=== PATIENT | male | born 1995 | race Caucasian/White ===

== ENCOUNTER 2016-12-12 19:23 | Inpatient (IN) | payer OTHER ==
[~2016-12-12] VITALS: Ht 175.3 cm; Wt 94.9 kg
[2016-12-12 19:31] VITALS: BP 142/87; PULSE 84; RESP 20; O2SAT 98
--- NOTE | 2016-12-12 19:37 | ED.REPORT ---
HPI-Abd Pain M Under 40 Date of Service Dec 12, 2016 ED Provider: Dr. Garcia Pt is a healthy 21 year old male presenting to the ED complaining of RLQ abdominal pain onset yesterday. Associated symptoms include nausea and vomiting. He was sent from after a CT scan showing a perforated appendicitis. Denies headache, chest pain, SOB, or any other symptoms at this time. Nursing Notes Stated Complaint: ACUTE APPENDICITIS Chief Complaint: Male Abdominal Pain Nursing Notes Reviewed: Yes Allergies: Coded Allergies: No Known Allergies (Unverified , 12/12/16) General Time Seen by MD: 19:37 Chief Complaint Abdominal pain Hx Obtained From: Patient Arrived By: Walk-in Sudden in Onset?: Yes Onset Occurred: Yesterday Symptom Duration: Since onset Progression since Onset: Constant Location: : RLQ Quality: Painful Radiation: : Does not radiate Severity: Current: Moderate Severity: Maximum: Severe Associated with: Reports: Nausea, Vomiting Recent Healthcare: No recent hospitalization, Recent doctor visit Similar Sx Previous: No Past Medical History Past Medical History Notes: CT ABD and PELVIS at today shows: 1. Ruptured appendicitis with appendicolith. Moderate surrounding free fluid and pelvic fluid. 2. Mildly distended small bowel loops within the pelvis, consistent with mild secondary focal ileus. Past Medical History healthy Past Surgical History denies Smoking History Unknown if Ever Smoker Ambulatory Status Independent Review of Systems Constitutional: Denies: Fever Respiratory: Denies: Shortness of breath Cardiovascular: Denies: Chest pain, Syncope GI: Reports: Abdominal pain, Nausea, Vomiting Complete sys rev & neg: except as marked. Neurologic: Denies: Headache Physical Exam Initial Vital Signs Vital Signs (First) Date Time Temp Pulse Resp B/P Pulse Ox O2 Delivery O2 Flow Rate FiO2 12/12/16 19:31 38.0 84 20 142/87 98 Room Air Initial VS: Reviewed Head / Eyes: Atraumatic, Normocephalic, PERRL ENT: Mucous membranes moist, Conjunctiva normal, No scleral icterus Neck: Supple, Non-tender, Full range of motion Extremities: Vascular intact, Neuro intact, No swelling, No tenderness Skin: Warm, Dry, No cyanosis Neurologic: Alert, Oriented, Nonfocal Psychiatric: Mood/affect normal, Behavior normal, Normal thought content General/Constitutional: Awake, Alert, No acute distress, Well appearing Generalized pallor Respiratory / Chest: Atraumatic, Breath sounds NL, Breath sounds = bilat, No respiratory distress Cardiovascular: Heart rate NL, Regular rhythm, Heart sounds NL, No gallop, No murmurs, No rubs Abdomen: Atraumatic, No palpable mass Tenderness/Guarding/Rebound: Positive: Guarding voluntary, Tender RLQ... ( Moderate) Interpretation & Diagnostics Lab Results Interpretation Result Diagram: 12/12/16201712/12/162017 Re-Eval/Medical Decision Med Decision/Clinical Course 21-year-old healthy male with acute ruptured appendicitis. CT confirmation. Laboratory work shows leukocytosis. Patient was fluid resuscitated and treated with broad-spectrum antibiotics. Surgical consultation performed. Plan for operative intervention this evening. Re-Evaluation/Progress : Time of Eval: 20:30 Patient Status: Condition improved Re-Evaluation/Progress Note: Performed physical exam. Consultation : Referral / Consult Name: Lee Hardwick MD Consulted With: Surgeon Call Returned at: 19:41 Records Management Specialist: Will see patient, Agrees with plan, Accepts admit Note: He will go to surgery tonight. Counseled Regarding: Diagnosis, Lab results, Need for admission Patient Discharge & Departure Primary Impression: Ruptured appendicitis Disposition: ADMITTED TO HOSPITAL Discharge Condition All VS Reviewed: Yes Condition: Improved Referrals: NOPCP (PCP) [facility] Attestation Portions of this note were transcribed by Gabriela Anderson. I, Dr. Garcia personally performed the history, physical exam and medical decision-making; I reviewed and confirmed the accuracy of the information in the transcribed note. Signed by : Tracey Mccracken, 12/12/2016 at 2120. Facundo Garcia DO Dec 12, 2016 19:37 GABRIELA ANDERSON Dec 12, 2016 19:45
[2016-12-12] MEDS ORDERED: Piperacillin-Tazo 3.375 Gm Inj 3.375 GM in Dextrose 5% Minibag Plus 50 ML IV ONE (19:40)
[2016-12-12] MEDS ORDERED: 0.9% Sodium Chloride 1,000 ML IV ONE (19:40)
[2016-12-12] MEDS ORDERED: Ondansetron 2 mg/mL 2 mL Inj IVPUSH PRN ×3 (19:40→23:30)
[2016-12-12] MEDS ORDERED: Propofol 10,000 mCg/mL 20 mL Inj ONE (20:06)
[2016-12-12] MEDS ORDERED: Succinylcholine Chloride 20 mg/mL 5 mL Inj ONE (20:06)
[2016-12-12] MEDS ORDERED: Glycopyrrolate 0.2 MG/ML 1mL Inj ONE (20:06)
[2016-12-12] MEDS ORDERED: fentaNYL-PF 50 mCg/mL 2 mL Inj ONE (20:06)
[2016-12-12] MEDS ORDERED: Rocuronium 10 mg/mL 5 mL Inj ONE (20:06)
[2016-12-12] MEDS ORDERED: Neostigmine 1 mg/mL 10 mL Inj ONE (20:06)
[2016-12-12] MEDS ORDERED: Ondansetron 2 mg/mL 2 mL Inj ONE (20:06)
[2016-12-12] MEDS: HYDROmorphone 0.5 mg/0.5 mL iSecure Syringe IVPUSH PRN ×2 (20:10→20:54)
[2016-12-12 20:21] LABS: BASOPHILS % (AUTO) 0.1 % (0-3); EOSINOPHILS % (AUTO) 0.1 % (0-5); MONOCYTES % (AUTO) 9.4 % (4-12); Mean Corpuscular Hemoglobin 28.5 pg (27.0-35.0); NEUTROPHILS % (AUTO) 86.9 % (40-74); Platelet Count 203 bil/L (150-400)
--- NOTE | 2016-12-12 22:04 | PCM.HPANE ---
Patient Data Surgeon Admitting Provider:Lee Hardwick MD Attending Provider:Lee Hardwick MD Primary Care Physician:Michael Other Provider: Reason for Visit Ruptured Appy Ht/WT & BMI Height (Feet): 5 Height (Inches): 9 Weight (Kilograms): 92.27 Body Mass Index Allergies Coded Allergies: No Known Allergies (Unverified , 12/12/16) Past Anesthesia History Anesthesia History: Denies:: Abnormal Airway, Anesthesia Reactions, Difficult Intubation, Fam Anesthesia Reaction, Fam Malignant Hypertherm, Malignant Hyperthermia Diabetes History Hx Diabetes?: No History History of ENT Problems?: No HEENT History: Denies:: Abnormal Airway Cataracts Difficult Intubation Dysphagia Glaucoma Hearing Problem Sinus Problem TMJ Denture Type: None Teeth Condition: Within Normal Limits Hx of Heart Problems?: No Cardiovascular History: Denies:: AICD Abdominal Aortic Aneurism Atrial Fibrillation Cardiac Surgery Chest Pain Congestive Heart Failure Coronary Artery Disease Edema Heart Murmur Hypertension Irregular Heartbeat Pacemaker Peripheral Vascular Rheumatic Fever Thrombophlebitis Valvular Heart Disease Hx of Respiratory Problem?: No Respiratory History: Denies:: Asthma COPD Chest Surgery Cough Dyspnea Emphysema Hemoptysis Oxygen Administration Pneumonia Pulmonary Embolism Tuberculosis Use of C-PAP Machine Use of Inhalers / NEBS Hx Neurologic Problems?: No Neurological History: Denies:: Alzheimer's Disease CVA Dementia Dizziness Headaches Multiple Sclerosis Parkinson's Disease Peripheral Neuropathy Seizures TIA Hx of GI Problems?: Yes Other History/Comment Appendicitis Hx of Problems?: No Male Hx: Denies:: Prostate Problems Scrotal Mass Testicular Surgery Skin History: Denies:: History Skin Disorders? Pressure Ulcers Hx Musculoskeletal Problems?: No Musculoskeletal History: Denies:: Back Injury Degenerative Joint Fibromyalgia Joint Replacement Musculoskeletal Trauma Myasthenia Gravis Osteoarthritis Rheumatoid Arthritis Systemic Lupus Psycho Social History: Denies:: Anxiety Bipolar Disorder Hx Depression Suicide Attempt Hx Surgeries?: No Other History: Denies:: Cancer Endocrine Disease Hospitalization Thyroid Disease History Blood Transfusions: Denies:: Accept Blood Products? Blood Transfuse Reaction Blood Transfusions Hx Diabetes: No Hx Alcohol Use: NoHx Substance Use: No Smoking Status: Unknown if Ever Smoker Stop/Bang Treated for Sleep Apnea?: No Do You Have a CPAP Machine?: No Risk Assessment Category Category 1A: Patient has history of documented sleep apnea, and HAS NOT received any narcotic, sedative or anesthesia administration during this stay. Category 1B: Patient has history of documented sleep apnea, and HAS received any narcotic , sedative or anesthesia administration during this stay Category 2: Patient has SUSPECTED Obstructive Sleep Apnea, and HAS received any narcotic , sedative or anesthesia administration during this stay. Category 3: Patient has SUSPECTED Obstructive Sleep Apnea and HAS NOT received narcotic, sedative or anesthesia administration during this stay. Category 4: Outpatient in Procedural Areas with known sleep apnea or who screen positive for High Risk via the STOP/BANG questionnaire. Exam Exam Vital Signs Vital Signs Date Time Temp Pulse Resp B/P Pulse Ox O2 Delivery O2 Flow Rate FiO2 12/12/16 19:31 38.0 84 20 142/87 98 Room Air General Appearance: Alert, Oriented X3, Cooperative, No Acute Distress HEENT/AIRWAY: MP 2 Lungs: Clear to Auscultation, Normal Air Movement Heart: Exam Unremarkable, Regular Rate/Rhythm, No Murmurs/Rubs/Gallops Meds/Labs/Diagnostics Admission Meds Current Medications Piperacillin Sod/ Tazobactam Sod 3.375 gm/Dextrose/ Water 50 ml @ 100 mls/hr ONCE ONCE IV Last administered on 12/12/16 20:07; Start 12/12/16 at 19:40; Stop 12/12/16 at 20:09; Status DC Sodium Chloride (Normal Saline) 1,000 ml @ 0 mls/hr Q0M ONCE IV Last administered on 12/12/16 20:07; Start 12/12/16 at 19:40; Stop 12/12/16 at 19:41 ; Status DC Labs Test 12/12/16 20:18 White Blood Count 19.0th/mm3 (3.8-10.1) Red Blood Count 5.29mil/mm3 (4.40-5.80) Hemoglobin 15.1g/dL (13.8-17.2) Hematocrit 43.9% (41.0-50.0) Mean Corpuscular Volume 83.0fL (81-100) Mean Corpuscular Hemoglobin 28.5pg (27.0-35.0) Mean Corpuscular Hemoglobin Concent 34.4% (32.0-37.0) Red Cell Distribution Width 13.1% (12.3-15.4) Platelet Count 203bil/L (150-400) Neutrophils (%) (Auto) 86.9% (40-74) Lymphocytes (%) (Auto) 3.2% (14-46) Monocytes (%) (Auto) 9.4% (4-12) Eosinophils (%) (Auto) 0.1% (0-5) Basophils (%) (Auto) 0.1% (0-3) Sodium Level 138mEq/L (134-144) Potassium Level 4.1mEq/L (3.5-5.2) Chloride Level 96mEq/L (97-108) Carbon Dioxide Level 24mmol/L (18-29) Blood Urea Nitrogen 12mg/dL (6-20) Creatinine 1.01mg/dL (0.76-1.27) Estimat Glomerular Filtration Rate 99mL/min (>59) Glucose Level 125mg/dL (60-99) Calcium Level 10.1mg/dL (8.5-10.1) Total Bilirubin 0.6mg/dL (0.0-1.2) Aspartate Amino Transf (AST/SGOT) 16U/L (0-50) Alanine Aminotransferase (ALT/SGPT) 19U/L (0-44) Alkaline Phosphatase 96U/L (25-150) Total Protein 8.1g/dL (6.4-8.4) Albumin 4.7g/dL (3.4-5.0) Plan Impression Patient chart reviewed, patient interviewed and anesthestic plan with risks, benefits, and alternatives discussed, and informed consent obtained. ASA Physical Status: ASA2 Plus Emergency Anesthetic Plan: GA Bene/Risks/Altern/Consents: Yes HP Complete Prior to Induction: Yes Lee Holcomb MD Dec 12, 2016 22:04
[2016-12-12] MEDS ORDERED: Lactated Ringer's 1,000 ML IV ONE ×2 (22:08→23:15)
[2016-12-12] MEDS ORDERED: Bupivacaine-MPF 0.5% 30 mL Inj INFILTRATE ONE (22:22)
[2016-12-12 22:28] VITALS: BP 142/87; PULSE 84; RESP 20; O2SAT 98
[2016-12-12] MEDS ORDERED: diphenhydrAMINE 25 mg Capsule PO PRN (23:25)
[2016-12-12] MEDS ORDERED: Acetaminophen IV 1,000 MG in IV Premix 1 EACH IV PRN (23:25)
[2016-12-12] MEDS ORDERED: HYDROmorphone 0.5 mg/0.5 mL iSecure Syringe IV PRN (23:25)
[2016-12-12] MEDS ORDERED: Polyethylene Glycol (PEG) 17 Gm Powder PO ONE (23:25)
[2016-12-12] MEDS ORDERED: Phenylephrine 10,000 mCg/mL Inj IVPUSH PRN (23:30)
[2016-12-12] MEDS ORDERED: fentaNYL-PF 50 mCg/mL 2 mL Inj IVPUSH PRN (23:30)
[2016-12-12] MEDS ORDERED: EPHEDrine Sulfate 50 mg/mL Inj IVPUSH PRN (23:30)
[2016-12-12] MEDS ORDERED: Lactated Ringer's 500 ML IV PRN (23:30)
[2016-12-12] MEDS ORDERED: HYDROmorphone 1 mg/mL Inj IVPUSH PRN (23:30)
[2016-12-12] MEDS ORDERED: MetoCLOpramide 5 mg/mL 2 mL Inj IVPUSH PRN (23:30)
[2016-12-12] MEDS ORDERED: Lactated Ringer's 1,000 ML IV SCH (23:30)
[2016-12-12] MEDS ORDERED: Dexamethasone 4 mg/mL Inj IVPUSH PRN (23:30)
--- NOTE | 2016-12-12 23:34 | HP ---
[address] [address] HISTORY AND PHYSICAL PATIENT: DANIEL FIGUEROA : 1995 MR#: [id number] ADMIT: 12/12/2016 JOB ID: [id number] DATE OF ADMISSION: 12/12/2016 CHIEF COMPLAINT/IDENTIFICATION: A [id number] man with probable appendicitis. HISTORY OF PRESENT ILLNESS: The patient developed onset of pain beginning yesterday in the right lower quadrant, with associated nausea and vomiting. He was seen in urgent care, diagnosed by CT scan with a possible perforated appendicitis. PAST MEDICAL HISTORY: Negative. MEDICATIONS: None. ALLERGIES: None. SOCIAL HISTORY: Lives with his parents. Works as a cross fit staff trainer. Negative tobacco. Negative alcohol. FAMILY HISTORY: Noncontributory. REVIEW OF SYSTEMS: Complete review of systems negative except for current abdominal pain. PHYSICAL EXAMINATION: Temperature 38, blood pressure and pulse within normal limits. Room air saturation is 98%. HEENT normocephalic, atraumatic. Sclerae are clear. Neck is supple. Lungs are clear. Heart sounds are regular. Abdomen is tender in the right lower quadrant. LABORATORIES: Labs demonstrate a white count of 19, hematocrit of 43. Normal chemistries. Glucose of 125, normal LFTs. IMAGING: Abdominal CT scan by report is consistent with a perforated appendicitis. I have reviewed the films as well as the report. I believe that this is most consistent with appendicitis with an appendicolith and this is not inconsistent with a perforated appendicitis but is not pathognomonic. IMPRESSION AND PLAN: Probable appendicitis with possible perforation. He has received intravenous Zosyn for the beginning of therapeutic antibiotics in the emergency department. I have recommended laparoscopic appendectomy. He agrees to proceed. We will proceed tonight.
[2016-12-12 23:48] VITALS: BP 136/66; PULSE 77; RESP 25; O2SAT 97
[2016-12-12 23:50] VITALS: BP 136/73; PULSE 74; RESP 26; O2SAT 97
[2016-12-12 23:56] VITALS: BP 140/60; PULSE 69; RESP 24; O2SAT 97
--- NOTE | 2016-12-12 23:57 | PCM.ANEP1 ---
Post Anesthesia PACU Phase 1 Assessment Vital Signs Vital Signs Date Time Temp Pulse Resp B/P Pulse Ox O2 Delivery O2 Flow Rate FiO2 12/12/16 23:50 74 26 136/73 97 Nasal Cannula 2 12/12/16 23:48 37.2 77 25 136/66 97 Nasal Cannula 2 12/12/16 22:28 38.0 84 20 142/87 98 Room Air 12/12/16 19:31 38.0 84 20 142/87 98 Room Air Anesthetic Administered: GA Level of Alertness: Sleeping, hard to arouse HALE's with Equal Strength: Yes Pain: No Pain Scale Score: 0 Nausea or Vomiting: No CV Function & Hydration Stable: Yes Airway Device: Oxygen Delivery: Room Air Lungs: Clear to Auscultation, Normal Air Movement Dermatome Level: Full Sensation PACU Phase 2 Assessment Complications: No Follow up Care: No Patient Instructions Provided: N/A Lee Holcomb MD Dec 12, 2016 23:57
[2016-12-13] VITALS (9 sets, daily range): BP systolic 126–155; BP diastolic 68–80; PULSE 69–99; RESP 16–23; O2SAT 95–98
--- NOTE | 2016-12-13 00:23 | OP ---
[address] [address] OPERATIVE REPORT PATIENT: DANIEL FIGUEROA : 1995 MR#: [id number] ADMIT: 12/12/2016 JOB ID: [id number] DATE OF SURGERY: 12/12/2016 PREOPERATIVE DIAGNOSIS(ES): Appendicitis. POSTOPERATIVE DIAGNOSIS(ES): Perforated appendicitis. PROCEDURE: Laparoscopic appendectomy for perforated appendicitis. SURGEON: 1. Lee Hardwick MD. 2. Dr. Elieser Ortiz. BUSINESS PLANNER: Rob Cedillo PA-C. INDICATION: A 21-year-old man with signs and symptoms consistent with appendicitis. Preoperative CT was read as possible perforated appendicitis and he was began on therapeutic antibiotics in the emergency department immediately prior to transfer to the operating room. FINDINGS: 1. A surgical services director was necessary for camera operation. 2. The patient had perforated appendicitis. PROCEDURE: The patient was brought to the operating room. SCOAP protocol was followed. He was on therapeutic antibiotics that had been started immediately prior to transfer from the emergency department and we; therefore, did not give him any extra antibiotics. Surgical time-out was performed. The abdomen was prepped and draped in sterile fashion. We obtained access with a Veress needle. CO2 pneumoperitoneum was established. We placed a 5 mm periumbilical port, followed by two additional ports in the standard fashion. The appendix was exposed. He clearly had an inflamed appendix. As we mobilized the appendix, it became clear that he had a contained perforation in the paracolic gutter. We mobilized the appendix, took down the mesoappendix, and then amputated the appendix at its base with a single firing of the endoscopic stapler. The tip of the appendix was then freed up and placed in a bag and removed without wound contamination. We suctioned up all the spillage, irrigated appropriately, including irrigating out the pelvis. We then checked our staple line and once we were satisfied that the staple line was intact and hemostasis was good we placed a Ant-Buenrostro drain with its tip down into the pelvis and looping past the abscess cavity in the right paracolic gutter. We let our CO2 out, closed the wounds with absorbable suture, secured the drain. Patient tolerated the procedure well.
[2016-12-13] MEDS: D5 0.45% NaCl + KCl 20 mEq/L 1,000 ML IV SCH ×3 (00:45→19:25)
[2016-12-13] MEDS: Piperacillin-Tazo 3.375 Gm Inj 3.375 GM in Dextrose 5% Minibag Plus 50 ML IV SCH ×3 (00:45→17:41)
[2016-12-13] MEDS: Sodium Chloride LOK Flush 10 mL Syringe IVFLUSH SCH ×3 (00:45→17:41)
[2016-12-13] MEDS ORDERED: 0.9% Sodium Chloride 250 ML ONE (00:47)
[2016-12-13] MEDS ORDERED: Polyethylene Glycol (PEG) 17 Gm Powder PO ONE ×2 (05:20→08:30)
[2016-12-13 07:13] LABS: BASOPHILS % (AUTO) 0.1 % (0-3); EOSINOPHILS % (AUTO) 0.1 % (0-5); MONOCYTES % (AUTO) 10.3 % (4-12); Mean Corpuscular Hemoglobin 28.6 pg (27.0-35.0); Mean Corpuscular Volume 84.9 fL (81-100); NEUTROPHILS % (AUTO) 82.5 % (40-74); Platelet Count 168 bil/L (150-400)
--- NOTE | 2016-12-13 08:26 | PCM.PNSURG ---
Subjective Date of Service: Dec 13, 2016 Date of Service: Dec 13, 2016 Visit Information: Reason for Visit Ruptured Appy Surgery/Surgery Date Post-Op Day # 1 Date of Admission: Dec 12, 2016 at 20:05 Hospital Day # 1 Subjective: Patient resting comfortably in bed. He states he is having no nausea and minimal abdominal pain. He has not had a bowel movement or passed flatus at this time. Postop General: No Complaints, No Shortness of Breath Gastrointestinal: No N/V Pain Management: PO (with IV Push available PRN) Postop Activity: Ambulating Independently Objective Objective CBC Test 12/13/16 06:35 White Blood Count 16.7th/mm3 (3.8-10.1) Red Blood Count 4.83mil/mm3 (4.40-5.80) Hemoglobin 13.8g/dL (13.8-17.2) Hematocrit 41.0% (41.0-50.0) Mean Corpuscular Volume 84.9fL (81-100) Mean Corpuscular Hemoglobin 28.6pg (27.0-35.0) Mean Corpuscular Hemoglobin Concent 33.7% (32.0-37.0) Red Cell Distribution Width 13.3% (12.3-15.4) Platelet Count 168bil/L (150-400) Neutrophils (%) (Auto) 82.5% (40-74) Lymphocytes (%) (Auto) 6.8% (14-46) Monocytes (%) (Auto) 10.3% (4-12) Eosinophils (%) (Auto) 0.1% (0-5) Basophils (%) (Auto) 0.1% (0-3) CMP Test 12/12/16 20:18 Sodium Level 138mEq/L Potassium Level 4.1mEq/L Chloride Level 96mEq/L Carbon Dioxide Level 24mmol/L Blood Urea Nitrogen 12mg/dL Creatinine 1.01mg/dL Estimat Glomerular Filtration Rate 99mL/min Glucose Level 125mg/dL Calcium Level 10.1mg/dL Total Bilirubin 0.6mg/dL Aspartate Amino Transf (AST/SGOT) 16U/L Alanine Aminotransferase (ALT/SGPT) 19U/L Alkaline Phosphatase 96U/L Total Protein 8.1g/dL Albumin 4.7g/dL Vital Sign- Last 8 Hours Date Time Temp Pulse Resp B/P Pulse Ox O2 Delivery O2 Flow Rate FiO2 12/13/16 07:53 36.8 96 16 133/70 97 Room Air 12/13/16 06:15 37.0 99 16 127/69 98 Room Air Intake and Output- Last 8 Hour 12/13/16 Cumulative From/Thru 07:00 12/12/16 00:09 - 12/13/16 06:47 Intake Total 1065 ml 3165 ml Output Total 0 ml 0 ml Balance 1065 ml 3165 ml Intake Oral 200 ml 200 ml IV Total 845 ml 2945 ml Tube Irrigant 20 ml 20 ml Output Drainage Total 0 ml 0 ml # Voids 1 1 General: Alert, Oriented X3, Cooperative, No Acute Distress Abdomen: Soft, Appropriately tender, Non-distended Result Diagram: 12/13/16 0635 12/12/162017 Assessment & Plan Problems: (1) Perforated appendicitis Status: Acute ICD Code: K35.2 Plan - Advance diet to general as tolerated - Continue PO oxycodone and acetaminophen scheduled with IV morphine available for breakthrough pain - HITESH drain in place, currently draining serosanguineous fluid as expected, continue to monitor - WBC in the a.m. Pain Management: PO oxycodone with IV pushes available PRN Susan Beasley DO Dec 13, 2016 08:26
[2016-12-14] MEDS: Piperacillin-Tazo 3.375 Gm Inj 3.375 GM in Dextrose 5% Minibag Plus 50 ML IV SCH ×2 (00:38→08:55)
[2016-12-14] MEDS: Sodium Chloride LOK Flush 10 mL Syringe IVFLUSH SCH ×3 (00:38→09:07)
[2016-12-14 00:47] VITALS: BP 135/72; PULSE 89; RESP 14; O2SAT 98
[2016-12-14 04:44] VITALS: BP 126/73; PULSE 94; RESP 16; O2SAT 96
[2016-12-14] MEDS: D5 0.45% NaCl + KCl 20 mEq/L 1,000 ML IV SCH (05:25)
--- NOTE | 2016-12-14 07:31 | PCM.PNSURG ---
Subjective Date of Service: Dec 14, 2016 Date of Service: Dec 14, 2016 Visit Information: Reason for Visit Ruptured Appy Surgery/Surgery Date Post-Op Day # 2 Date of Admission: Dec 12, 2016 at 20:05 Hospital Day #2 Subjective: Patient feeling much better today. He is walking the halls multiple times and tolerating full diet. He has had flatus but no bowel movement Postop General: No Complaints Gastrointestinal: Good Appetite, No N/V, Passing Flatus Pain Management: PO Postop Activity: Ambulating Independently Objective Objective CBC Test 12/14/16 05:50 CMP Test 12/12/16 20:18 Sodium Level 138mEq/L Potassium Level 4.1mEq/L Chloride Level 96mEq/L Carbon Dioxide Level 24mmol/L Blood Urea Nitrogen 12mg/dL Creatinine 1.01mg/dL Estimat Glomerular Filtration Rate 99mL/min Glucose Level 125mg/dL Calcium Level 10.1mg/dL Total Bilirubin 0.6mg/dL Aspartate Amino Transf (AST/SGOT) 16U/L Alanine Aminotransferase (ALT/SGPT) 19U/L Alkaline Phosphatase 96U/L Total Protein 8.1g/dL Albumin 4.7g/dL Vital Sign- Last 8 Hours Date Time Temp Pulse Resp B/P Pulse Ox O2 Delivery O2 Flow Rate FiO2 12/14/16 04:44 36.8 94 16 126/73 96 Room Air 12/14/16 00:47 36.9 89 14 135/72 98 Intake and Output- Last 8 Hour 12/14/16 Cumulative From/Thru 07:00 12/12/16 00:09 - 12/14/16 04:44 Intake Total 300 ml 5042 ml Output Total 1500 ml 3375 ml Balance -1200 ml 1667 ml Intake Oral 300 ml 1420 ml IV Total 3602 ml Tube Irrigant 20 ml Output Urine Total 1500 ml 3375 ml Drainage Total 0 ml 0 ml # Voids 1 General: Alert, Cooperative, No Acute Distress Abdomen: Soft, Appropriately tender Catheters: None Result Diagram: 12/13/16 0635 12/12/16 2018 Assessment & Plan Problems: (1) Perforated appendicitis Status: Acute ICD Code: K35.2 Plan - HITESH drain in place with minimal serosanguineous output. This will likely be removed today. - Patient is ambulating with minimal pain - Pain management with by mouth oxycodone and acetaminophen - He is currently tolerating general diet. He is having flatus. - WBC pending. -Day 2 IV Zosyn -Patient will likely be discharged today on oral antibiotics. Pain Management: By mouth oxycodone and acetaminophen. Susan Beasley DO Dec 14, 2016 07:31
[2016-12-14 08:13] LABS: BASOPHILS % (AUTO) 0.1 % (0-3); EOSINOPHILS % (AUTO) 0.6 % (0-5); MONOCYTES % (AUTO) 12.5 % (4-12); Mean Corpuscular Hemoglobin 28.7 pg (27.0-35.0); NEUTROPHILS % (AUTO) 79.9 % (40-74); Platelet Count 171 bil/L (150-400)
--- NOTE | 2016-12-14 10:39 | PCM.DISURG ---
Surgical Discharge Instruction Date of Service Dec 14, 2016 Dates of Hospitalization Date of Hospital Admission Dec 12, 2016 at 20:05 Providers Admitting Physician: Lee Hardwick MD Primary Care Physician: Nopcp Attending Physician: Lee Hardwick MD Discharge Diagnosis Discharge Diagnosis #1 perforated appendicitis #2 status post laparoscopic appendectomy Post Operative diagnosis Same as above Diet Discharge Diet: No restrictions Activity Discharge Activity-General: Activity as pain allows, Activity as energy allows , Restrict lifting to no greater than (50-100lbs for 4-[address] Hardwick ) Dressing and Incisional Care Dressing Care: Allow Steri Stripes to fall off Hygiene: May shower, DO NOT soak incision under water Follow Up Plan Follow Up Plan Follow-up in [facility] in 1 week. Follow-up appointment: Weeks (1) Call your provider for: Fever, Chills, Shortness of breath, Increasing abdominal pain, Nausea, Vomiting, Wound redness, Increasing wound pain, Warmth to touch, Discharge @ incision, pus discharge Rob Cedillo PA-C Dec 14, 2016 10:17
[2016-12-14] MEDS ORDERED: HYDR-3740 PO (10:41)
[2016-12-14] MEDS ORDERED: DOCU250C2 PO (10:51)
[2016-12-14] MEDS ORDERED: SENN17.24 PO (10:51)
[2016-12-14] MEDS ORDERED: AMOX-366 PO (10:51)
[2016-12-14] MEDS ORDERED: POLY17PO6 PO (10:51)
--- NOTE | 2016-12-14 10:54 | PCM.DC.SUR ---
Discharge Summary Date of Service: Dec 14, 2016 Date of Hospital Admission: Dec 12, 2016 at 20:05 Date of Operation(s): 12/12/2016 Date of Discharge: 12/14/2016 Diagnosis at Time of Discharge #1 Perforated appendicitis #2 Status post laparoscopic appendectomy Problems: (1) Perforated appendicitis Status: Acute ICD Code: K35.2 Operation Laparoscopic appendectomy Brief History and Physical: This is a 21-year-old young and healthy male who developed acute abdominal pain beginning 2 days ago that was severe and rated 8 out of 10 on the pain scale worsening with intermittent frequency located in the right lower quadrant, sharp in quality with associated loss of appetite, diarrhea, eructation, nausea , and vomiting. He denied back pain, bloating, blood in stool, dizziness, fever , flank pain, heartburn, hematuria, and lightheadedness. The patient also states that the pain was so bad that it woke him up from sleep 2 nights ago. The patient seeked immediate medical attention at urgent care undergoing a CT scan of the abdomen confirming acute appendicitis. He was transferred to the emergency department where he underwent a general surgery evaluation by on-call General Surgeon Dr. Lee Hardwick M.D. recommending emergent laparoscopic appendectomy for perforated appendicitis. There no other current pertinent positive or negative and/or past medical or surgical history. He was also given prescriptions for analgesics, anti-constipation medication, and antibiotics with instructions for taking the medications. Hospital Course: The patient was admitted with a history, presentation, and workup consistent with perforated appendicitis and underwent the above-mentioned operation without complication. See operative report for details of the procedure. The patient's postsurgical recovery was uneventful. The patient exhibited signs of bowel function. The patient was stable for discharge on postoperative day #3. At the time of discharge the patient's leukocytosis had improved significantly and his drain output was minimal serosanguineous fluid. He was voiding without difficulty, passing flatus, tolerating a general diet without nausea or vomiting. His pain was minimal and treated only as needed with oral analgesics , ambulating without assistance, with clean, dry, and intact surgical wounds without signs of significant infection, inflammation, & or hematoma. We also discussed in detail the patient's postoperative care instructions, follow-up recommendations, and went to seek immediate medical attention. The patient verbalized understanding and all questions were answered. Pathology: Pending analysis of perforated appendix specimen Disposition: Home in stable condition her on-call general surgeon Dr. Silva Follow-up Plan: Follow-up in [facility]patient [facility] in 1 week Amoxicillin/Clav K 875-125 mg (Augmentin 875-125 mg) 1 Each Tablet 1 TABLET PO BID Docusate Sodium (Docusate Sodium) 250 Mg Capsule 250 MG PO BID Hydrocodone-Acetaminophen 10-325 mg (Hydrocodone-Acetaminophen 10-325 mg) 1 Each Tablet 1 TABLET PO QID PRN PRN For Severe Pain Polyethylene Glycol 3350 (Miralax) 17 Gm Powd.pack 17 GM PO BID Sennosides (Senokotxtra) 17.2 Mg Tablet 17.2 MG PO DAILY PRN PRN For Constipation copies to: Nguyễn Cervantes PA-C; Monica Nj PAC Rob Cedillo PA-C Dec 14, 2016 10:53
[2016-12-14 12:23] VITALS: BP 144/69; PULSE 96; RESP 18; O2SAT 99
--- NOTE | 2016-12-14 17:05 | PATH ---
SURGICAL PATHOLOGY Attending Physician:Lee Hardwick MD CASE STATUS: Signed Out PATIENT NAME: DANIEL FIGUEROA PID: [id number] : 1995 DATE COLLECTED:12/12/2016 00:00 SPECIMEN: Appendix CLINICAL HISTORY: RUPTURED APPENDIX 1). APPENDIX FINAL DIAGNOSIS: Appendix, Laparoscopic Appendectomy: Acute appendicitis and serositis with features suggestive of rupture. ICD10: K35.2 GROSS DESCRIPTION: The specimen is received in formalin, labeled with the patient's name, sublabeled as appendix, and consists of an intact appendix (length- 7.8 cm, diameter- 1.0). The resection margin is received stapled. The specimen contains a partial slice half way through the lumen 1.8 cm from the tip. The serosa is austin-pink smooth, shiny, and partially covered in austin flaky friable exudate. The lumen contains thompson solid soft material. The wall is up to 0.3 cm thick. No nodules, masses or lesions are identified. Ink code: black-proximal; orange-previous slice. Section code: (A) appendix, serially sectioned, electronics parts sales representative; bivalved tip, one half submitted; (B) sliced area, entirely submitted. 12/13/16 ICD-9 CODES: CPT CODES: 1: 41915 Electronically Signed Out Shantell Barrera MD [facility] Pathology [facility] [address], [place] [address] Technical component performed at [facility], [facility] [address], [place], [address]
== END 2016-12-14 13:14 | disposition home or self-care (01) | DRG 340 ==
LOC: SED 19:23 → OSC 20:05
PROVIDERS: ADMIT Surgery; ATTEND Surgery
PROC: 0DTJ4ZZ Resection of Appendix, Percutaneous Endoscopic Approach (ICD-10-PCS; principal; 2016-12-12 21:30)
DX: K35.2 Acute appendicitis with generalized peritonitis (principal)